=== PATIENT | female | born 1935 | race Caucasian/White ===

== ENCOUNTER 2016-06-18 08:00 | Outpatient (CLI) | payer MEDICAID, MEDICARE, OTHER | END 2016-06-18 08:01 | disposition home or self-care (01) | DX: R35.0 Frequency of micturition (principal) ==

== ENCOUNTER 2016-09-14 08:37 | Outpatient (CLI) | payer MEDICARE, OTHER, MEDICAID | END 2016-09-14 08:38 | disposition home or self-care (01) | DX: Z13.0 Encounter for screening for diseases of the blood and blood-forming organs and certain disorders involving the immune mechanism (principal); M91 Juvenile osteochondrosis of hip and pelvis; E83.42 Hypomagnesemia ==